=== PATIENT | female | born 1940 | race Caucasian/White ===

== ENCOUNTER 2017-04-10 11:39 | Day surgery (SDC) | payer OTHER ==
[~2017-04-10 11:39] MED LIST: Buffered Lidocaine 0.9% SYRIN* 5 ML/SYR SYRINGE INTRADERM ONE
[2017-04-10] MEDS ORDERED: Clindamycin 900 MG IVPREMIX(* 900 MG/50 ML SDV IV ONE (12:27)
[2017-04-10] MEDS ORDERED: Lidocaine 1% MPF wEPI 200,000* 30 ML SDV ONE (12:40)
[2017-04-10] MEDS ORDERED: Mineral Oil Sterile, TOPICAL* 25 ML BTL ONE (12:41)
[2017-04-10] MEDS ORDERED: Methylene Blue 0.5 %* 50 MG/10 ML AMP IV ONE (12:41)
[2017-04-10] MEDS ORDERED: Midazolam* 1 MG/ML 2 ML VIAL (2 MG) ONE (12:55)
[2017-04-10] MEDS ORDERED: fentaNYL* 50 MCG/ML 2 ML VIAL (100 MCG VIAL) ONE (12:55)
[2017-04-10] MEDS ORDERED: Lidocaine 2% PF * 5 ML VIAL ONE (13:09)
[2017-04-10] MEDS ORDERED: Propofol* 10 MG/ML 20 ML BTL IV PUSH ONE (13:09)
[2017-04-10 14:48] VITALS: BP 128/63
[2017-04-10] MEDS ORDERED: Acetaminophen TAB* 325 MG ONE (15:03)
== END 2017-04-10 15:20 | disposition home or self-care (01) ==
LOC: OREAST 11:39
PROVIDERS: ATTEND Plastic Surgery
DX: C44.311 Basal cell carcinoma of skin of nose (principal)
CPT/HCPCS: A9270-GY; J2001; J2250; J2704; J3010

== ENCOUNTER 2019-03-20 18:52 | Emergency (ER) | payer OTHER ==
--- OUTSIDE RECORDS SUMMARY | 2019-03-20 18:58 | XMS REPORT | Summary of Care ---
:1940 Author Organization [facility] Address [address] [facility] [place] [address] Care Team Providers Name Role Phone Kusum Castorena MD Primary Care Provider Reason for Visit Reason Comments Physical Encounter Details Date Type Department Care Team Description 03/19/2019 Office Visit [facility] [place], Mixed hyperlipidemia ( Primary Dx); Practice Kusum Robertson MD Osteoarthritis of knee, unspecified laterality, unspecified osteoarthritis type; [address] Well adult exam; [place] [address] [place] [address] Elevated triglycerides with high cholesterol; [phone] Elevated glucose Allergies Active Allergy Reactions Severity Noted Date Comments Amoxicillin Unknown Reaction 08/06/2018 Niacin PHONOGRAPH NEEDLE TIP MAKER Reaction 08/06/2018 Head feels prickly and stings documented as of this encounter (statuses as of 03/19/2019) Medications Medication Sig Dispensed Refills Start End Date Status Date Ergocalciferol Take by mouth. 0 Active (VITAMIN D2) 400 units Oral Tab Calcium 500-125 Take by mouth. 0 Active MG-UNIT Oral Tab Ford-3 1000 MG Take by mouth. 0 Active Oral Cap Nutritional Take by mouth. 0 Active Supplements (GRAPESEED EXTRACT) 500-50 MG Oral Cap Misc Natural Take by mouth 0 Active Products TWICE DAILY. (XUBXBU-XJUQMWJXK-Q SM COMPLEX PO) Zinc 40 MG Oral Tab Take by mouth. 0 Active Multiple Take by mouth. 0 Active Vitamins-Minerals (HAIR SKIN AND NAILS FORMULA PO) albuterol HFA Take 2 Puffs by 0 Active (VENTOLIN HFA) 108 inhalation. (90 Base) MCG/ACT Inhalation Aero Soln Cyanocobalamin Take by mouth 0 Active (VITAMIN B-12) 1000 DAILY. MCG Oral Tab loratadine Take 10 mg by 0 Active (CLARITIN,ALAVERT) mouth DAILY. 10 MG Oral Tab acetaminophen Take 1 Tab by 60 Tab 0 Active (TYLENOL) 500 MG mouth EVERY 9 Oral Tab FOUR HOURS. nabumetone Take 750 mg by 180 Tab 1 Active (RELAFEN) 750 MG mouth TWICE 9 Oral DAILY. TabIndications: Osteoarthritis of knee, unspecified laterality, unspecified osteoarthritis type Rosuvastatin Take 1 Tab by 90 Tab 1 Active Calcium (CRESTOR) mouth DAILY. 9 20 MG Oral Discontinue TabIndications: lovastatin Mixed hyperlipidemia Lovastatin 20 MG Take 20 mg by 0 03/19/20 Discontinued Oral Tab mouth DAILY. 19 nabumetone Take 750 mg by 0 03/19/20 Discontinued (RELAFEN) 750 MG mouth TWICE 19 (Reorder) Oral Tab DAILY. 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 03/18/2019 Overview: right thigh documented as of this encounter (statuses as of 03/19/2019) Immunizations Name Administration Dates Next Due Influenza Vaccine High Dose 04/05/2018 PNEUMOCOCCAL POLYSACCHARIDE VACCINE 07/29/2007 Pneumococcal Conjugate Vaccine 03/01/2015 TDAP Vaccine 05/26/2006 TETANUS & DIPHTHERIA TOXOID (OVER 7 YRS) 04/28/2017 ZOSTER (ZOSTAVAX) VACCINE 01/08/2007 documented as of this encounter Social History Tobacco Use Types Packs/Day Years Used Date Never Smoker Smokeless Tobacco: Never Used Alcohol Use Drinks/Week oz/Week Comments Yes 1 Glasses of wine 1.0 4/month Alcohol Habits Answer Date Recorded How often do you have a drink containing alcohol? Monthly or less 08/06/2018 How many drinks containing alcohol do you have on a Not asked typical day when you are drinking? How often do you have six or more drinks on one Not asked occasion? Sex Assigned at Date Recorded Not on file Job Start Date Occupation Industry Not on file Not on file Not on file Travel History Travel Start Travel End No recent travel history available. documented as of this encounter Last Filed Vital Signs Vital Sign Reading Time Taken Comments Blood Pressure 120/80 03/19/2019 1:35 PM EDT Pulse 78 03/19/2019 1:35 PM EDT Temperature 37.4 03/19/2019 1:35 PM EDT C (99.3 F) Respiratory Rate - - Oxygen Saturation 99% 03/19/2019 1:35 PM EDT Inhaled Oxygen Concentration - - Weight 76.7 kg (169 lb) 03/19/2019 1:35 PM EDT Height 161.3 cm (5' 3.5") 03/19/2019 1:35 PM EDT Body Mass Index 29.47 03/19/2019 1:35 PM EDT documented in this encounter Patient Instructions Patient InstructionsKusum Castorena MD - 03/19/2019 1:20 PM EDTYou have had problems swallowing. Do your exercises as you learned in speech therapy a few years ago. Keep food moist, eat slowly. I otherwise recommend a swallowing study at [facility] to help determine where the problem is, vs gastroenterology consultation for upper endoscopy. Be very careful to avoid choking. Work on diet and exercise and recheck fasting laboratory tests in June. 2: 10 PM EDT documented in this encounter Progress Notes uKsum Castorena MD - 03/19/2019 1:20 PM EDT Nursing Notes: Annamaria Clancy LPN 03/19/2019 1:42 PM Signed Chief Complaint Patient presents with Physical Shift Boss: Dr Toledo Subjective: Ellie Guzmán is a 79-y.o. year old female who presents for annual female exam. Exercise has been off for 3 months, cleared by surgeon to resume. Last pap smear 01/2018 Mammogram up to date 01/2018 cmc She has had her left thigh lesion removed since last visit: myxoid spindle cell neoplasm, right lateral thigh/vastuslateralis, mass plus margins 8 cm x [address] Mireles on 03/04/19. She says she stayed in the hospital two days since she lives alone. She says the care was fantastic. Patient Active Problem List Diagnosis Myxoma of thigh, right Osteoarthritis of knee Left shoulder pain Other problems include: Has dysphagia in upper esophagus/throat level. Will choke,romano. Has had this for years. Has had to vomit 3 times in the last year to clear it. Drinking fluids helps a bit. Has hx gerd 9 yr ago and known hiatal hernia Current symptoms feel different When she eats it feels like her throat closes off at epiglottis level. Treatment tried: chiropractor--mild short term help Saw ENT a few years: Negative for blockage/mass so Physical/Speech Therapy was recommended. She did it for 3 months and it helped a bit. Health maintainance concerns include Physical exam, influenza vaccine. Health Maintenance Topic Date Due ZOSTER IMMUNIZATION SERIES (2 of 3) 03/05/2007 INFLUENZA VACCINE (1) 02/21/2019 DEPRESSION SCREENING 08/06/2019 FALL RISK ASSESSMENT 08/06/2019 LIPID DISORDER SCREENING 03/19/2024 OSTEOPOROSIS SCREENING 06/02/2028 PNEUMOCOCCAL 65+YRS Completed HPV IMMUNIZATION SERIES Aged Out MENINGOCOCCAL VACCINE IMM Aged Out Immunization History Administered Date(s) Administered Influenza Vaccine High Dose 04/05/2018 PNEUMOCOCCAL POLYSACCHARIDE VACCINE 07/29/2007 Pneumococcal Conjugate Vaccine 03/01/2015 TDAP Vaccine 05/26/2006 TETANUS & DIPHTHERIA TOXOID (OVER 7 YRS) 04/28/2017 ZOSTER (ZOSTAVAX) VACCINE 01/08/2007 Pended Date(s) Pended Influenza Vaccine 65 Yrs + 03/18/2019 Influenza Vaccine High Dose 02/24/2019 Lab Results Component Value Date CHOL 210 (H) 12/02/2018 TRIG 312 (H) 12/02/2018 HDL 48 (L) 12/02/2018 LDL 100 (H) 12/02/2018 LDLHDLRATIO 2.1 12/02/2018 CHOLHDLRATIO 4.4 12/02/2018 Lab Results Component Value Date NA 138 03/05/2019 K 3.8 03/05/2019 CL 109 (H) 03/05/2019 CO2 22 03/05/2019 GLUCOSE 118 (H) 03/05/2019 BUN 14 03/05/2019 CREATININE 0.7 03/05/2019 CALCIUM 8.6 03/05/2019 TP 8.2 02/23/2019 ALBUMIN 4.5 02/23/2019 AST 28 02/23/2019 ALT 21 02/23/2019 ALK 93 02/23/2019 TBILI 0.5 02/23/2019 EGFR >60 03/05/2019 Admission on 03/04/2019, Discharged on 03/06/2019 Component Date Value Ref Range Status Case Report 03/04/2019 Final Value:Surgical Pathology Case: [id number] Authorizing Provider: Pardeep Mireles MD Collected: 2018 09:37 AM Ordering Location: [facility] Preprocedure Received: 2018 11:32 AM Pathologist: Darren Villar MD Specimen: RIGHT thigh mass, suture at 12 o'clock superior Pre-Op Diagnosis 03/04/2019 Final Value: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 Microscopic Description 03/04/2019 Final Value:This result contains rich text formatting which cannot be displayed here. Gross Description 03/04/2019 Final Value:This result contains rich text formatting which cannot be displayed here. Glucose 03/05/2019 118* 70 - 99 mg/dl Final BUN 03/05/2019 14 7 - 17 mg/dl Final Creatinine 03/05/2019 0.7 0.7 - 1.2 mg/dl Final Sodium 03/05/2019 138 134 - 145 mmol/L Final Potassium 03/05/2019 3.8 3.5 - 5.1 mmol/L Final Chloride 03/05/2019 109* 98 - 107 mmol/L Final CO2 03/05/2019 22 22 - 30 mmol/L Final Calcium 03/05/2019 8.6 8.3 - 10.1 mg/dl Final eGFR 03/05/2019 >60 See Interpretation Below ml/min/1.73ml Sq Final Estimated GFR Interpretation: Above 60ml/min/1.73m2 = Normal Renal Function 30-59 ml/min/1.73m2 = Stage 3 Chronic Kidney Disease 15-29 ml/min/1.73m2 = Stage 4 Chronic Kidney Disease Less than 15 ml/min/1.73m2 = Stage 5 Chronic Kidney Disease The GFR value is calculated using the Modification of Diet in Renal Disease ( MDRD) Study Equation which can be found at: https://www.kidney.org/content/ncgn-sxwgo-ivqhnnjq BUN/Creatinine Ratio 03/05/2019 20 6 - 22 RATIO Final Anion Gap 03/05/2019 7 3 - 11 mmol/L Final WBC Count 03/05/2019 10.96* 3.98 - 10.04 K/uL Final Methodology was changed 06/25/2018. Please note updated reference range and units. RBC Count 03/05/2019 3.64* 3.93 - 5.22 M/UL Final Hemoglobin 03/05/2019 11.7 11.2 - 15.7 g/dL Final Hematocrit 03/05/2019 34.2 34.1 - 44.9 % Final MCV 03/05/2019 94.0 79.4 - 94.8 FL Final MCH 03/05/2019 32.1 25.6 - 32.2 PG Final MCHC 03/05/2019 34.2 32.2 - 35.5 g/dL Final Platelet Count 03/05/2019 258 182 - 369 K/uL Final MPV 03/05/2019 8.6* 9.4 - 12.3 FL Final RDW 03/05/2019 12.3 11.7 - 14.4 % Final Magnesium 03/05/2019 2.1 1.6 - 2.3 MG/DL Final Past Medical History: Diagnosis Date Arthritis hands, knees, ankles Asthma 2018 dx on PFT,normal FVC Basal cell carcinoma, face High cholesterol high triglyerides, started a wellness program. 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 albuterol HFA (VENTOLIN HFA) 108 (90 Base) MCG/ACT Inhalation Aero Soln Take 2 Puffs by inhalation. Calcium 500-125 MG-UNIT Oral Tab Take by mouth. Cyanocobalamin (VITAMIN B-12) 1000 MCG Oral Tab Take by mouth DAILY. Ergocalciferol (VITAMIN D2) 400 units Oral Tab Take by mouth. loratadine (CLARITIN,ALAVERT) 10 MG Oral Tab Take 10 mg by mouth DAILY. Misc Natural Products (MOLNNS-APUSSQCRK-UPC COMPLEX PO) Take by mouth TWICE DAILY. Multiple Vitamins-Minerals (HAIR SKIN AND NAILS FORMULA PO) Take by mouth. nabumetone (RELAFEN) 750 MG Oral Tab Take 750 mg by mouth TWICE DAILY. Nutritional Supplements (GRAPESEED EXTRACT) 500-50 MG Oral Cap Take by mouth. Ford-3 1000 MG Oral Cap Take by mouth. Rosuvastatin Calcium (CRESTOR) 20 MG Oral Tab Take 1 Tab by mouth DAILY. Discontinue lovastatin Zinc 40 MG Oral Tab Take by mouth. No current facility-administered medications for this visit. Amoxicillin and Niacin Social History Tobacco Use Smoking status: Never Smoker Smokeless tobacco: Never Used Substance Use Topics Alcohol use: Yes Alcohol/week: 1.0 standard drinks Types: 1 Glasses of wine per week Frequency: Monthly or less Comment: 4/month Drug use: Not Currently Family History Problem Relation Age of Onset Cancer Mother skin Emphysema Mother at 81 from COPD Diabetes Father Cancer Father colon COPD Father from surgery COPD Brother Review of Systems - General ROS: negative for - chills or fever, unexpected weight changes ENT ROS: negative for - headaches, nasal congestion, nasal discharge, sinus pain , sore throat or visual changes Respiratory ROS: negative for - cough, hemoptysis or shortness of breath Cardiovascular ROS: negative for - chest pain, dyspnea on exertion, edema or palpitations Gastrointestinal ROS: no abdominal pain, change in bowel habits, or black or bloody stools; she has intermittent dysphagia/swallowing difficulty as noted above. Genito-Urinary ROS: no dysuria, trouble voiding, or hematuria Neuro: denies headache, focal weakness, numbness Psych: Denies depression Objective: BP 120/80 (BP Location: Right arm, Patient Position: Sitting) Pulse 78 Temp 99.3 F (37.4 C) (Tympanic) Ht 5' 3.5" (1.613 m) Wt 169 lb (76.7 kg) SpO2 99% ? No BMI 29.47 kg/m2 Physical Examination: General appearance - alert, well appearing, and in no distress Mental status - alert, oriented to person, place, and time, normal mood, behavior, speech, dress, motor activity, and thought processes Eyes - pupils equal and reactive, extraocular eye movements intact, sclera anicteric Ears - bilateral TM's and external ear canals normal Neck - supple, no significant adenopathy, carotids upstroke normal bilaterally, no bruits, thyroid exam: thyroid is normal in size without nodules or tenderness , no neck masses palpated. Chest/Lungs - clear to auscultation, no wheezes, rales or rhonchi, symmetric air entry, good aeration Heart - normal rate, regular rhythm, normal S1, S2, no murmurs, rubs, clicks or gallops Abdomen - soft, nontender, nondistended, no masses or organomegaly, bowel sounds normal Neurological - alert, oriented, normal speech, no gross focal findings or movement disorder noted Extremities - peripheral pulses normal, no pedal edema, no clubbing or cyanosis Breasts are symmetric. No dominant, discrete, fixed or suspicious masses are noted. No skin or nipple changes or axillary nodes. Skin: No worrisome lesions seen Assessment/Plan: Healthy female ICD-9-CM ICD-10-CM 1. Mixed hyperlipidemia 272.2 E78.2 Rosuvastatin Calcium (CRESTOR) 20 MG Oral Tab 2. Osteoarthritis of knee, unspecified laterality, unspecified osteoarthritis type 715.36 M17.10 nabumetone (RELAFEN) 750 MG Oral Tab 3. Well adult exam V70.0 Z00.00 4. Elevated triglycerides with high cholesterol 272.2 E78.2 LIPID PROFILE 5. Elevated glucose 790.29 R73.09 COMPREHENSIVE METABOLIC PANEL GLYCOHEMOGLOBIN A1C 1. Routine Screening: Screening for osteoporosis? 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 She will check on her insurance coverage and resume the exercises she learned in speech therapy a few years ago. She will call when ready for the next step. Choking precautions discussed. 2. Immunizations today: None, she plans her flu shot at work 3. Preventative Counseling: importance of regular dental care, healthy dietary guidelines, proper exercise, fall prevention DIET AND EXERCISE: Exercise is recommended 150 minutes weekly: 30 minutes five days a week of moderate exercise such as walking. In addition is it recommended you have two days weekly of working all your major muscle groups (arms, legs) such as with weight lifting or other exercise. Author: Kusum Castorena MD 03/19/2019 15:32 documented in this encounter Plan of Treatment Date Type Specialty Care Team Description 04/20/2019 Office Visit General Surgery Pardeep Mireles MD [address] [place] [place] [address] [phone] Name Type Priority Associated Diagnoses Order Schedule LIPID PROFILE Lab Routine Elevated triglycerides Expected: with high cholesterol 07/19/2019 (Approximate), Expires: 02/17/2020 COMPREHENSIVE METABOLIC Lab Routine Elevated glucose Expected: PANEL 07/19/2019 (Approximate), Expires: 02/17/2020 GLYCOHEMOGLOBIN A1C Lab Routine Elevated glucose Expected: 07/19/2019 (Approximate), Expires: 02/17/2020 Health Maintenance Due Date Last Done Comments ZOSTER IMMUNIZATION SERIES 03/05/2007 01/08/2007 (2 of 3) INFLUENZA VACCINE (#1) 2019 04/05/2018 DEPRESSION SCREENING 08/06/2019 08/06/2018 FALL RISK ASSESSMENT 08/06/2019 08/06/2018, 08/06/2018 LIPID DISORDER SCREENING 03/19/2024 03/19/2019, 12/02/2018, 10/26/2018, Additional history exists OSTEOPOROSIS SCREENING 06/02/2028 06/02/2018, 06/02/2018 PNEUMOCOCCAL 65+YRS Completed 03/01/2015, 07/29/2007 HPV IMMUNIZATION SERIES Aged Out No longer eligible based on patient's age to complete this topic MENINGOCOCCAL VACCINE IMM Aged Out No longer eligible based on patient's age to complete this topic documented as of this encounter Results Not on filedocumented in this encounter Visit Diagnoses Diagnosis Mixed hyperlipidemia - Primary Osteoarthritis of knee, unspecified laterality, unspecified osteoarthritis type Well adult exam Routine general medical examination at a health care facility Elevated triglycerides with high cholesterol Mixed hyperlipidemia Elevated glucose Other abnormal glucose documented in this encounter Insurance Payer Benefit Plan / Subscriber ID Effective Dates Phone Address Type Group [employer] COMMERCIAL AETNA xxxxxxxxxx 2006-Present [employer] documented as of this encounter
--- OUTSIDE RECORDS SUMMARY | 2019-03-20 18:58 | XMS REPORT | Summary of Care ---
:1940 Author Organization [facility] Address [address] [place] [address] Care Team Providers Name Role Phone Kusum Castorena MD Primary Care Provider Reason for Visit Reason Comments Follow-up s/p 03/04/19 OPERATION: Resection myxoid spindle cell neoplasm, right lateral thigh/vastus Encounter Details Date Type Department Care Team Description 03/18/2019 Office Visit Aj General Surgery Colleen, Myxoma (Primary Dx); [address] PA-C Spindle cell type atypical fibroxanthoma [place] [address] [address] [phone] [place] [address] Allergies Active Allergy Reactions Severity Noted Date Comments Amoxicillin Unknown Reaction 08/06/2018 Niacin ELECTRIC HOIST OPERATOR Reaction 08/06/2018 Head feels prickly and stings documented as of this encounter (statuses as of 03/19/2019) Medications Medication Sig Dispensed Refills Start Date End Date Status Ergocalciferol Take by 0 Active (VITAMIN D2) 400 mouth. units Oral Tab Calcium 500-125 Take by 0 Active MG-UNIT Oral Tab mouth. [place]-3 1000 MG Oral Take by 0 Active Cap mouth. Nutritional Take by 0 Active Supplements mouth. (GRAPESEED EXTRACT) 500-50 MG Oral Cap Misc Natural Take by 0 Active Products mouth TWICE (WSTJLI-DMBIWHVIR-ED DAILY. M COMPLEX PO) Zinc 40 MG Oral Tab Take by 0 Active mouth. Multiple Take by 0 Active Vitamins-Minerals mouth. (HAIR SKIN AND NAILS FORMULA PO) albuterol HFA Take 2 0 Active (VENTOLIN HFA) 108 Puffs by (90 Base) MCG/ACT inhalation. Inhalation Aero Soln Cyanocobalamin Take by 0 Active (VITAMIN B-12) 1000 mouth MCG Oral Tab DAILY. loratadine Take 10 mg 0 Active (CLARITIN,ALAVERT) by mouth 10 MG Oral Tab DAILY. acetaminophen Take 1 Tab 60 Tab 0 03/06/2019 Active (TYLENOL) 500 MG by mouth Oral Tab EVERY FOUR HOURS. Lovastatin 20 MG Take 20 mg 0 Discontinued Oral Tab by mouth 9 DAILY. nabumetone (RELAFEN) Take 750 mg 0 Discontinued 750 MG Oral Tab by mouth 9 (Reorder) TWICE DAILY. OXYcodone Take 1 Tab 16 Tab 0 03/05/2019 Discontinued (OXY-IR,OXY-FAST) 5 by mouth 9 (Error) MG Oral Tab EVERY FOUR HOURS NEEDED (pain). Max Daily Amount: 30 mg. 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 female who presents 2 weeks following Resection myxoid spindle cell neoplasm, right lateral thigh/vastus lateralis, mass plus margins 8 cm x [address] Mireles on 03/04/19. Patient states they are doing well over all. Patient has been keeping the incision clean and dry, washing over with soap and water without complications. Denies fever, chills, constitutional symptoms, redness, or increased pain at procedure sites. She is working with [facility] [email or web address] [facility] for exercise activities. She wishes to return to swimming int he near future. Exam: Ellie Guzmán is a 79-y.o. female oriented to person, place, and time. Incision: well healing, without complications, there is no erythema, bleeding or drainage at incision site. Pathology: Intramuscular Myxoma ASSESSMENT: ICD-9-CM ICD-10-CM 1. Myxoma 215.9 D21.9 2. 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 Follow up with Surgical Oncology in 4 - 6 weeks. She will review with Dr. Mireles the pathology at her request, and discuss any imaging follow up recommended. All questions andconcerns were addressed during today's visit. Patient may follow up sooner if problems or concerns arise. Author: Bianka Macias PA-C 03/18/2019 15:12 documented in this encounter Plan of Treatment Date Type Specialty Care Team Description 04/20/2019 Office Visit General Surgery Pardeep Mireles MD [address] [address] Health Maintenance Due Date Last Done Comments [...] filedocumented in this encounter Visit Diagnoses Diagnosis Myxoma - Primary Other benign neoplasm of connective and other soft tissue of unspecified site Spindle cell type atypical fibroxanthoma Other benign neoplasm of connective and other soft tissue of unspecified site documented in this encounter Insurance Payer Benefit Plan / Subscriber ID Effective Dates Phone Address Type Group [employer]CIAL AETNA xxxxxxxxxx 2006-Present [employer] documented as of this encounter
--- OUTSIDE RECORDS SUMMARY | 2019-03-20 18:58 | XMS REPORT | Summary of Care ---
:1940 Author Organization [facility] Address [address] [address] Care Team Providers Name Role Phone Kusum Castorena MD Primary Care Provider Reason for Referral Refer to Department Only (Routine) Status Reason Specialty Diagnoses / Referred By Referred To Contact Procedures Contact Authorized Physical Therapy Diagnoses Sarcoma (HCC) Nelsy Malik MD Orthopaedics - 1 [facility] [address] [place] [address] Phone: [address] [phone] [place], [place] Fax: [phone] Refer to Department Only (Routine) Status Reason Specialty Diagnoses / Referred By Referred To Procedures Contact Contact Authorized Physical Therapy Diagnoses Sarcoma (HCC) Nelsy Malik [facility] Wendy Domingo MD Therapy [address] [place] [address] [address] Phone: [phone] Phone: Reason for Visit Auth/Cert Status Reason Specialty Diagnoses / Procedures Referred By Contact Referred To Contact Diagnoses Malignant neoplasm of connective and soft tissue, unspecified Encounter Details Date Type Department Care Team Description 03/04/2019 - Hospital Encounter [facility] 7 Angela Mireles, Short Procedure 03/06/2019 [place] [address] [place] [address] [address] [address] [phone] Allergies Active Allergy Reactions Severity Noted Date Comments Amoxicillin Unknown Reaction 08/06/2018 Niacin CASKET COVERER Reaction 08/06/2018 Head feels prickly and stings documented as of this encounter (statuses as of 03/07/2019) Medications Medication Sig Dispensed Refills Start Date End Date Status Lovastatin 20 MG Take 20 mg 0 Active Oral Tab by mouth DAILY. nabumetone (RELAFEN) Take 750 mg 0 Active 750 MG Oral Tab by mouth TWICE DAILY. Ergocalciferol Take by 0 Active (VITAMIN D2) 400 mouth. units Oral Tab Calcium 500-125 Take by 0 Active MG-UNIT Oral Tab mouth. Chamberlain-3 1000 MG Oral Take by 0 Active Cap mouth. Nutritional Take by 0 Active Supplements mouth. (GRAPESEED EXTRACT) 500-50 MG Oral Cap Misc Natural Take by 0 Active Products mouth TWICE (BFIFAF-COQEKRVCQ-IS DAILY. M COMPLEX PO) Zinc 40 MG [...] by mouth 10 MG Oral Tab DAILY. methocarbamol Take 0.5 240 Tab 0 03/05/2019 Active (ROBAXIN) 500 MG Tabs by 9 Oral Tab mouth FOUR TIMES DAILY for 7 days. OXYcodone Take 1 Tab 16 Tab 0 03/05/2019 Active (OXY-IR,OXY-FAST) 5 by mouth MG Oral Tab EVERY FOUR HOURS NEEDED (pain). Max Daily Amount: 30 mg. acetaminophen Take 1 Tab 60 Tab 0 03/06/2019 Active (TYLENOL) 500 MG by mouth Oral Tab EVERY FOUR HOURS. acetaminophen Take 1 Tab 60 Tab 0 03/06/2019 Discontinued (TYLENOL) 500 MG by mouth 9 (Reorder) Oral Tab EVERY FOUR HOURS. documented as of this encounter (statuses as of 03/07/2019) Active Problems No known active problemsdocumented as of this encounter (statuses as of 2018) Resolved Problems Problem Noted Date Resolved Date Myxoma of thigh, right 02/09/2019 03/06/2019 Overview: Added automatically from request for surgery [id number] documented as of this encounter (statuses as of 03/07/2019) Immunizations Name Administration Dates Next Due Influenza [...] Sign Reading Time Taken Comments Blood Pressure 139/75 03/06/2019 9:15 AM EDT Pulse 76 03/06/2019 9:15 AM EDT Temperature 36.4 03/06/2019 9:15 AM C (97.6 EDT F) Respiratory Rate 18 03/06/2019 9:15 AM EDT Oxygen Saturation 97% 03/06/2019 9:15 AM EDT Inhaled Oxygen Concentration - - Weight 77.4 kg (170 lb 11.2 oz) 03/04/2019 8:03 AM EDT Height 161.3 cm (5' 3.5") 03/04/2019 8:03 AM EDT Body Mass Index 29.76 03/04/2019 8:03 AM EDT documented in this encounter Discharge Summaries Orlando Mercado MD - 03/05/2019 5:20 PM EDT [facility] [address] [address] [id number] Discharge Summary Patient ID: Ellie Guzmán [id number] 79-y.o. 1940 Admission date: 03/04/2019 Discharge date: 03/06/2019 Admitting Physician: Angela Mireles MD Indication for Admission: Right Lateral Thigh Mass Principal Diagnosis: Right Lateral Thigh Myxoma Other medical problems managed in the hospital: Patient Active Problem List Diagnosis Sarcoma (HCC) Discharged Condition: stable Hospital Course: Ellie Guzmán is a 79-y.o. female admitted on 03/04/19 with right thigh mass. She was taken to the OR on 03/04/2019 and underwent resection Right Thigh MasS ( Right )which she tolerated well. Postoperatively, she was transferred from PACU to floor in stable condition. she remained afebrile and hemodynamically stable with no acute events throughout the majority of thepostoperative recovery. Surgical drain was removed on POD1. PT/OT was consulted and recommended short term rehab. Patient refused rehab understanding that this is associated with risk of delayed recovery/ injuries, and accepted outpatient physical therapy. Referrals was sent for [facility] for rehab. Upon discharge Ellie Guzmán is tolerating a regular diet without nausea/emesis , pain is controlled on oral medications, and she is voiding spontaneously. BP 119/65 Pulse 71 Temp 96.9 F (36.1 C) (Temporal) Resp 16 Ht 5' 3.5 " (1.613 m) Wt 170 lb 11.2 oz (77.4 kg) SpO2 96% BMI 29.76 kg/m2 General: alert, no distress, oriented times 3 Lungs: unlabored breathing on RA Heart: regular rate and rhythm Ext: warm, well perfused. incisions c/d/i, no induration/ drainage/ erythema She was discharged home on POD2. Ellie Guzmán will follow up with Bianka Macias in 10-14 days from surgery for post operative appointment. Consults: CONSULT TO GENERATOR OPERATOR/CASE MANAGEMENT Treatments: analgesia antibiotics DVT Prophylaxis IV hydration wound care Procedures: pathology: Specimen from surgery on 03/04/2019 FINAL DIAGNOSIS 1. Soft tissue, right thigh, excision: Intramuscular myxoma, completely removed. Microscopic Description Sections show a well-demarcated myxoid neoplasm with abundant myxoid matrix containing small myofibroblastic cells. No cytologic atypia is identified. Blood vessels are inconspicuous. Gross Description 1. The specimen is received fresh labeled, with the patient's name, BRANDON, and RIGHT thigh mass, suture at 12 o'clock superior. It consists of an oriented ( suture at 12:00)) soft tissue fragment that measures 6.5 cm from 12:00 proximal superior to 6:00 distal inferior, 4.5 cm from 3:00 medial to 9:00 lateral, excessive depth of 3.5 cm. The specimen is inked as follows: Superior = blue; medial = red; inferior = green; lateral = orange; anterior = yellow; posterior = black. The specimen is serially sectioned progressing from superior to inferior to reveal a pink-reddy and well-circumscribed fleshy lesion measuring approximately 5.5 x 3.6 x 2.6 cm that is located 0.21cm from the nearest lateral marginand approximately 0.2 cm from the anterior margin. Structural Steel Engineer sections are submitted as follows: 1A = superior margin, en face 1B-1C = sections of the lesion with the nearest lateral and anterior margins 1D = sections showing the lateral anterior medial and posterior margins 1E-1G = random sections of the lesion 1H = inferior margin, en face. MN Gross description is reviewed before signout by Darren Villar MD Ct Chest Without Iv Contrast Result Date: 02/26/2019 Procedure(s): CT CHEST WITHOUT IV CONTRAST Date of service: 02/23/2019 2:04 PM Provided clinical information: 78 years, Female, "sarcoma staging" Procedure and materials: Standard protocol. Contrast: None. Comparison studies: None. Observations: Axillary regions and chest wall are unremarkable. Thoracic inlet is normal. Mediastinum and hilar regions are unremarkable to the extent examined without contrast. Small hiatal hernia is noted. Esophagus is otherwise normal. No pleural or pericardial effusion. Lung parenchyma is normal. Specifically no nodules identified. Airways are normal. Visualized upperabdomen is unremarkable. Bones are normal No evidence of metastatic disease or other active process in the chest. Signed by Brendan Drake MD on 02/26/2019 12:46 PM Recent Labs 03/05/19 0658 WBC 10.96* HGB 11.7 HCT 34.2 PLAT 258 Recent Labs 03/05/19 0658 NA 138 K 3.8 CL 109* CO2 22 GLUCOSE 118* BUN 14 CREATININE 0.7 CALCIUM 8.6 EGFR >60 Magnesium Date Value Ref Range Status 03/05/2019 2.1 1.6 - 2.3 MG/DL Final No results found for: INR Operations: 03/04/2019 Resection myxoid spindle cell neoplasm, right lateral thigh/vastus lateralis, mass plus margins 8 cm x 11 cm resection. Complications: None Medications: Current Discharge Medication List START taking these medications acetaminophen 500 MG Tabs Commonly known as: TYLENOL Dose: 500 mg Quantity: 60 Tab Refills: 0 Take 1 Tab by mouth EVERY FOUR HOURS. methocarbamol 500 MG Tabs Commonly known as: ROBAXIN Dose: 250 mg Quantity: 240 Tab Refills: 0 Take 0.5 Tabs by mouth FOUR TIMES DAILY for 7 days. OXYcodone 5 MG Tabs Commonly known as: OXY-IR,OXY-FAST Dose: 5 mg Quantity: 16 Tab Refills: 0 Take 1 Tab by mouth EVERY FOUR HOURS NEEDED (pain). Max Daily Amount: 30 mg. CONTINUE these medications which have NOT CHANGED Calcium 500-125 MG-UNIT Tabs Refills: 0 Take by mouth. [id number] COMPLEX PO Refills: 0 Take by mouth TWICE DAILY. Grapeseed Extract 500-50 MG Caps Refills: 0 Take by mouth. HAIR SKIN AND NAILS FORMULA PO Refills: 0 Take by mouth. loratadine 10 MG Tabs Commonly known as: CLARITIN,ALAVERT Dose: 10 mg Refills: 0 Take 10 mg by mouth DAILY. Lovastatin 20 MG Tabs Dose: 20 mg Refills: 0 Take 20 mg by mouth DAILY. nabumetone 750 MG Tabs Commonly known as: RELAFEN Dose: 750 mg Refills: 0 Take 750 mg by mouth TWICE DAILY. Chamberlain-3 1000 MG Caps Refills: 0 Take by mouth. VENTOLIN HFA 108 (90 Base) MCG/ACT Aers Generic drug: albuterol HFA Dose: 2 Puff Refills: 0 Take 2 Puffs by inhalation. Vitamin B-12 1000 MCG Tabs Refills: 0 Take by mouth DAILY. Vitamin D2 400 units Tabs Refills: 0 Take by mouth. Zinc 40 MG Tabs Refills: 0 Take by mouth. Where to Get Your Medications These medications were sent to [facility] [place] [facility] [address] [address] methocarbamol 500 MG Tabs OXYcodone 5 MG Tabs These medications were sent to [id number] - [place], [place] - [address], [facility] [id number] acetaminophen 500 MG Tabs Oxygen or Positive Pressure Devices: none Provider's Instructions Reason for Admission or Diagnosis: myxoma of right thigh Activity/Restrictions: Activity as tolerated, but no heavy lifting > 10 lbs (nothing heavier than a gallon of milk) or strenuous exercise for 4 weeks or until cleared by a physician at your post-operative appointment. Nodriving while on narcotic pain medications. You can drive the week after next week if you are off narcotics and you feel up to it. Exercise and walk daily. Take tylenol as needed for pain (do not exceed 4000 mg acetaminophen in total per day). Take oxycodone 1-2 tablet every 4-6 hours as needed for severe pain. Skin/Wound Care: Keep incision clean and dry. Observe for redness, swelling, or drainage. It is okay to begin taking normal showers starting the day after discharge; let soap and water rinse over wounds and dry carefully. No scrubbing at the wounds. No soaking baths or swimming for 2 weeksafter discharge. Use ice packs and heat packs as needed for additional pain relief. Sutures are absorbable and do not need to be removed. Discharge Diet: Normal diet that you were on prior to hospitalization. Please take stool softener while you are on narcotic pain medication since it can cause constipation. Special Instructions: Follow up with Bianka Macias in [facility] in 10-14 days for post op visit. Please call clinic on Friday to schedule for the appointment. Please start outpatient physical therapy early next week. Please start taking oxycodone as needed for pain. Take tylenol over the counter as needed for pain (do not exceed 4000 mg acetaminophen in total per day ). Please monitor for any fevers> 100.5; redness, swelling or drainage from the wounds; inability to tolerate fluids by mouth and call clinic immediately if these symptoms occur. Please call the clinic if you have any questions or concerns before your appointment. Discharge Provider: Isha Jessica MD Attending: Angela Mireles MD Time: 16:35 Orders Placed This Encounter Procedures REFER TO PHYSICAL THERAPY / REHAB Reason for referral / functional deficit: Impaired Gait , Impaired Range of Motion and Impaired Strength Indicated Amount of Service: Patient would benefit from skilled physical therapy service to include: Gait Training, Therapeutic Procedures/Exercise, Patient/Family Training/Education Ellie Guzmán is a 79-y.o. female for Evaluation and Treatment Standing Status: Standing Number of Occurrences: 99 Standing Expiration Date: 03/05/2020 Referral Priority: Routine Referral Type: Refer to Department Only Requested Specialty: Physical Therapy Number of Visits Requested: 99 REFER TO PHYSICAL THERAPY / REHAB Reason for referral / functional deficit: Impaired Gait , Impaired Range of Motion and Impaired Strength Indicated Amount of Service: Patient would benefit from skilled physical therapy service to include: Gait Training, Therapeutic Procedures/Exercise, Patient/Family Training/Education Ellie Guzmán is a 79-y.o. female for Evaluation and Treatment Standing Status: Standing Number of Occurrences: 99 Standing Expiration Date: 03/05/2020 Referral Priority: Routine Referral Type: Refer to Department Only Requested Specialty: Physical Therapy Number of Visits Requested: 99 Total duration of time spent: 30 minutes. Provider Signature: Orlando Mercado MD Associated attestation - Valeriy Zarate MD - 03/06/2019 8:30 AM [facility] Supervising MD Documentation Date of Service: 03/06/2019 B# [id number] I saw and evaluated the patient. Discussed with resident and agree with the resident's findings andplan as documented in the resident's note. Additional Comments: Patient is doing well. Wound is healing well. Dressing is removed. Discharge instructions are given. Patient is going to the outpatient rehab in [facility]. Valeriy Zarate MD Supervising Physiciandocumented in this encounter Discharge Instructions Chay Montano RN - 03/05/2019Provider's Instructions Reason for Admission or Diagnosis: myxoma of right thigh Activity/Restrictions: Activity as tolerated, but no heavy lifting > 10 lbs (nothing heavier than a gallon of milk) or strenuous exercise for 4 weeks or until cleared by a physician at your post-operative appointment. Nodriving while on narcotic pain medications. You can drive the week after next week if you are off narcotics and you feel up to it. Exercise and walk daily. Take tylenol as needed for pain (do not exceed 4000 mg acetaminophen in total per day). Take oxycodone 1-2 tablet every 4-6 hours as needed for severe pain. Skin/Wound Care: Keep incision clean and dry. Observe for redness, swelling, or drainage. It is okay to begin taking normal showers starting the day after discharge; let soap and water rinse over wounds and dry carefully. No scrubbing at the wounds. No soaking baths or swimming for 2 weeksafter discharge. Use ice packs and heat packs as needed for additional pain relief. Sutures are absorbable and do not need to be removed. Discharge Diet: Normal diet that you were on prior to hospitalization. Please take stool softener while you are on narcotic pain medication since it can cause constipation. Special Instructions: Follow up with Bianka Macias in [facility] in 10-14 days for post op visit. Please call clinic on Friday to schedule for the appointment. Please start outpatient physical therapy early next week. Please start taking oxycodone as needed for pain. Take tylenol over the counter as needed for pain (do not exceed 4000 mg acetaminophen in total per day ). Please monitor for any fevers> 100.5; redness, swelling or drainage from the wounds; inability to tolerate fluids by mouth and call clinic immediately if these symptoms occur. Please call the clinic if you have any questions or concerns before your appointment. Discharge Provider: Isha Jessica MD Attending: Angela Mireles MD Time: 16:35 Nurse's Instructions Problems to report to your Physician: Excessive pain or discomfort Fever > 100.5 degrees Difficulty breathing Increase or smell in wound drainage Skin/Wound Care: Skin intact on discharge: May shower Medical Equipment/Supplies to help you at home: cane Follow-Up Care: Call to schedule your appointment with Bianka Macias in 2 weeks, Phone Reminded patient that they can VIEW, DOWNLOAD and TRANSMIT their hospital information in [facility]: yes http://www.[employer].net/sites/default/files/[email or web address]%[email or web address]%20will% 20see%[email or web address]_[email or web address].pdf Smoking: If you or your caregiver smoke, we recommend that you quit. For smoking cessation help, please callthe National Quit Line at . QUESTIONS OR CONCERNS AFTER DISCHARGE Dietitian Home Care Needs *Please Return Patient Satisfaction Survey* documented in this encounter Progress Notes Orlando Mercado MD - 03/05/2019 11:50 AM EDT [facility] [place]. [id number] General Surgery Progress Note Date of Service: 03/05/2019 Date of Admission: 03/04/19 Patient: Ellie Dowell #: [id number] Attending: ANGELA MIRELES MD ,MD Interval Present History: She is doing well this morning. She ambulated, voided independently and tolerated diet. SHABANA output is 50 cc serosanguinous. PT-OT will evaluate level of function and dc will beplanned. Past Medical History: Diagnosis Date Arthritis hands, knees, ankles Asthma 2018 dx on PFT,normal FVC Basal cell carcinoma, face High cholesterol high triglyerides, started a wellness program. 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: [employer] Social Needs Financial resource strain: Not on file Food insecurity: Worry: Not on file Inability: Not on file Transportation needs: Medical: Not on file Non-medical: Not on file Tobacco Use Smoking status: Never Smoker Smokeless tobacco: Never Used Substance and Sexual Activity Alcohol use: Yes Alcohol/week: 1.0 standard drinks Types: 1 Glasses of wine per week Frequency: Monthly or less Comment: 4/month Drug use: Not Currently Sexual activity: Not Currently Partners: Male, Female Lifestyle Physical activity: Days per week: Not on file Minutes per session: Not on file Stress: Not on file Relationships Social connections: Talks on phone: Not on file Gets together: Not on file Attends yazidi service: Not on file Active member of club or organization: Not on file Attends meetings of clubs or organizations: Not on file Relationship status: Not on file Intimate partner violence: Fear of current or ex partner: Not on file Emotionally abused: Not on file Physically abused: Not on file Forced sexual activity: Not on file Other Topics Concern Not on file Social History Narrative Lives alone 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 [facility] 08/06/18 Allergies Allergen Reactions Amoxicillin Unknown Reaction Niacin CASKET COVERER Reaction Head feels prickly and stings Vitals: Blood pressure 119/65, pulse 71, temperature 96.9 F (36.1 C), temperature source Temporal, resp. rate 16, height 5' 3.5" (1.613 m), weight 170 lb 11.2 oz (77.4 kg), SpO2 96 %, not currently . SaO2% on Room Air I/O: Date 03/04/19 0700 - 03/05/19 0659 03/05/19 0700 - 03/06/19 0659 Shift 1589-5377 7159-8270 7940-6278 24 Hour Total 4200-4873 6929-5289 0622-5172 24 Hour Total INTAKE P.O. 480 450 930 I.V.(mL/kg/hr) 1800(2.91) 1800(0.97) Shift Total(mL/kg) 2280(29.45) 450(5.81) 2730(35.26) OUTPUT Urine(mL/kg/hr) 600(0.97) 600(0.32) Drains 20 30 50 Blood 25 25 Shift Total(mL/kg) 625(8.07) 20(0.26) 30(0.39) 675(8.72) Weight (kg) 77.43 77.43 77.43 77.43 77.43 77.43 77.43 77.43 Medications: Current Facility-Administered Medications Medication acetaminophen (TYLENOL) tablet 1,000 mg albuterol HFA (PROVENTIL,VENTOLIN) inhalation (RT ADMIN) 2 Puff atorvastatin (LIPITOR) tablet 10 mg docusate sodium (COLACE) capsule 100 mg heparin injection 5000 UNIT/ML loratadine (CLARITIN,ALAVERT) tablet 10 mg methocarbamol (ROBAXIN) tablet (1/2x500 mg) 250 mg morphine (PF) syringe 2 mg OXYcodone (OXY-IR,OXY-FAST) immediate release tablet 10 mg OXYcodone (OXY-IR,OXY-FAST) immediate release tablet 5 mg General: No acute distress HEENT: no trauma Heart: no JVD Lungs: unlabored respirations Abd: soft/non-tender/non-distended Ext: No cyanosis, clubbing or edema, incision c/d/i Labs: WBC Count Date Value Ref Range Status 03/05/2019 10.96 (H) 3.98 - 10.04 K/uL Final Comment: Methodology was changed 06/25/2018. Please note updated reference range and units. Hemoglobin Date Value Ref Range Status 03/05/2019 11.7 11.2 - 15.7 g/dL Final Hematocrit Date Value Ref Range Status 03/05/2019 34.2 34.1 - 44.9 % Final Platelet Count Date Value Ref Range Status 03/05/2019 258 182 - 369 K/uL Final Sodium Date Value Ref Range Status 03/05/2019 138 134 - 145 mmol/L Final Potassium Date Value Ref Range Status 03/05/2019 3.8 3.5 - 5.1 mmol/L Final Chloride Date Value Ref Range Status 03/05/2019 109 (H) 98 - 107 mmol/L Final CO2 Date Value Ref Range Status 03/05/2019 22 22 - 30 mmol/L Final Glucose Date Value Ref Range Status 03/05/2019 118 (H) 70 - 99 mg/dl Final BUN Date Value Ref Range Status 03/05/2019 14 7 - 17 mg/dl Final Creatinine Date Value Ref Range Status 03/05/2019 0.7 0.7 - 1.2 mg/dl Final Calcium Date Value Ref Range Status 03/05/2019 8.6 8.3 - 10.1 mg/dl Final Calcium Date Value Ref Range Status 03/05/2019 8.6 8.3 - 10.1 mg/dl Final Magnesium Date Value Ref Range Status 03/05/2019 2.1 1.6 - 2.3 MG/DL Final No results found for: INR BS: Studies: none Core Measures: DVT Prophylaxis: heparin GI Prophylaxis: not indicated Nutrition: regular Max Remains in place for the following reason(s): No max present Assessment:Ellie Guzmán is a 79-y.o. yo female with slowly enlarging right thigh mass for at least5 years or more which causing no pain or discomfort. Most recent imaging study showed approximately5 cm intramuscular, vastus lateralis area myxomatous lesion. Biopsy and Pathology revealed Myxoid spindle cell neoplasm. Mild cytologic atypia. Pathology results were reviewed. Since this is consistent with a low-grade myxoid lesion. It could be A low-grade sarcoma or a benign myxoid lesion. Excision is done for definitive diagnosis / treatment. Plan: POD1 Resection of right lateral thigh intramuscular mass likely myxoid spindle cell neoplasm. - Pain control - Keep SHABANA at suction - PT/OT evaluated, recommended STR Asthma - Continue inhaler - Continue loratadine Dispo:Pt is not willing for STR, Plan dc home, SW following Author: Orlando Mercado MD Associated attestation - Angela Mireles MD - 03/05/2019 4:42 PM [facility] Supervising MD Documentation Date of Service: 03/05/2019 B# [id number] I saw and evaluated the patient. Discussed with resident and agree with the resident's findings andplan as documented in the resident's note. Additional Comments: Postoperative day #1. Overall doing well. Working with physical therapy. Mayneed additional physical therapy due to the issues with her home and stairs and steps. Paul-Soares drain removed. Final pathology: Benign intramuscular myxoma. Reviewed with her. Anticipate discharge 24 to 48 hours. Follow-up with Bianka Macias, 10 to 14 days for initial postop visit. Angela Mireles MD Supervising Physiciandocumented in this encounter Plan of Treatment Date Type Specialty Care Team Description 03/18/2019 Office Visit General Surgery Bianka Macias PA-C [address] [place] [address] [phone] Name Type Priority Associated Diagnoses Order Schedule REFER TO PHYSICAL Referral Routine Sarcoma (HCC) 99 Occurrences starting THERAPY / REHAB 03/05/2019 until 03/05/2020 REFER TO PHYSICAL Referral Routine Sarcoma (HCC) 99 Occurrences starting THERAPY / REHAB 03/05/2019 until 03/05/2020 Health Maintenance Due Date Last Done Comments ZOSTER IMMUNIZATION SERIES 03/05/2007 01/08/2007 (2 of 3) INFLUENZA VACCINE (#1) 2019 04/05/2018 DEPRESSION SCREENING 08/06/2019 08/06/2018 FALL RISK ASSESSMENT 08/06/2019 08/06/2018, 08/06/2018 LIPID DISORDER SCREENING 12/03/2023 12/02/2018, 10/26/2018, 08/06/2018, Additional history exists OSTEOPOROSIS SCREENING 06/02/2028 06/02/2018, 06/02/2018 PNEUMOCOCCAL 65+YRS Completed 03/01/2015, 07/29/2007 HPV IMMUNIZATION SERIES Aged Out No longer eligible based on patient's age to complete this topic MENINGOCOCCAL VACCINE IMM Aged Out No longer eligible based on patient's age to complete this topic documented as of this encounter Procedures Procedure Name Priority Date/Time Associated Comments Diagnosis MAGNESIUM LEVEL Routine 03/05/2019 6:58 Results for this AM EDT procedure are in the results section. BASIC METABOLIC Routine 03/05/2019 6:58 Results for this PANEL AM EDT procedure are in the results section. CBC NO DIFFERENTIAL Routine 03/05/2019 6:58 Results for this AM EDT procedure are in the results section. TISSUE EXAM Routine 03/04/2019 9:37 Sarcoma (HCC) Results for this AM EDT procedure are in the results section. EXCISION LIPOMA / Planned Trip to 03/04/2019 8:37 Sarcoma (HCC) SKIN LESION OR AM EDT documented in this encounter Results MAGNESIUM LEVEL (03/05/2019 6:58 AM EDT) Magnesium 2.1 1.6 - 2.3 MG/DL [facility] [facility] Specimen Blood Performing Organization Address City/State/Zipcode Phone Number [facility] [address] [address] CBC NO DIFFERENTIAL (03/05/2019 6:58 AM EDT) WBC Count 10.96 (H)Comment: 3.98 - 10.04 [place] Methodology was K/uL [facility] changed 06/25/2018. Please note updated reference range and units. RBC Count 3.64 (L) 3.93 - 5.22 [facility] M/UL [facility] Hemoglobin 11.7 11.2 - 15.7 [facility] g/dL [facility] Hematocrit 34.2 34.1 - 44.9 % [facility] MCV 94.0 79.4 - 94.8 [facility] FL GROUP [facility]ORY MCH 32.1 25.6 - 32.2 [facility] PG [facility] MCHC 34.2 32.2 - 35.5 [facility] g/dL [facility] Platelet Count 258 182 - 369 [facility] K/uL [facility] MPV 8.6 (L) 9.4 - 12.3 [place] [facility] RDW 12.3 11.7 - 14.4 % [facility] Specimen Blood Performing Organization Address City/State/Zipcode Phone Number [facility] [address] [place] [address] [phone] BASIC METABOLIC PANEL (03/05/2019 6:58 AM EDT) Glucose 118 (H) 70 - 99 mg/dl [facility] BUN 14 7 - 17 mg/dl [facility] Creatinine 0.7 0.7 - 1.2 mg/dl [facility] Sodium 138 134 - 145 mmol/L [facility] Potassium 3.8 3.5 - 5.1 mmol/L [facility] Chloride 109 (H) 98 - 107 mmol/L [facility] CO2 22 22 - 30 mmol/L [facility] Calcium 8.6 8.3 - 10.1 mg/dl [facility] eGFR >60 See Interpretation [facility] Comment: Below ml/min/1.73ml GROUP Sq LAB[facility]ATORY Estimated GFR Interpretation: Above 60ml/min/1.73m2 = Normal Renal Function 30-59 ml/min/1.73m2 = Stage 3 Chronic Kidney Disease 15-29 ml/min/1.73m2 = Stage 4 Chronic Kidney Disease Less than 15 ml/min/1.73m2 = Stage 5 Chronic Kidney Disease The GFR value is calculated using the Modification of Diet in Renal Disease ( MDRD) Study Equation which can be found at: https://www.kidney.org/content/stkh-gvkzc-warmcvsu BUN/Creatinine 20 6 - 22 [facility] Anion Gap 7 3 - 11 mmol/L [facility] Specimen Blood Performing Organization Address City/State/Zipcode Phone Number [facility] [address] [place] [address] TISSUE EXAM (03/04/2019 9:37 AM EDT) Case Report Surgical Pathology Case: [id number] [facility] Authorizing Provider: Angela Mireles MD Collected: 03/04/2019 09:37 AM Ordering Location: [facility] Preprocedure Received: 03/04/2019 11:32 AM Pathologist: Darren Villar MD Specimen: RIGHT thigh mass, suture at 12 o'clock superior Pre-Op Diagnosis 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 Soft tissue, [facility] Electronically right thigh, [facility] signed by excision: Darren Villar Intramuscular myxomaOmer MD on 03/05/2019 completely removed. at 11:18 AM Microscopic Sections show a [facility] Description well-demarcated [facility] myxoid neoplasm with abundant myxoid matrix containing small myofibroblastic cells. No cytologic atypia is identified. Blood vessels are inconspicuous. Gross Description 1. The specimen is received fresh labeled, with the patient' s name, MRN, and RIGHT thigh mass, suture at 12 o'clock superior. It consists of an oriented (suture at 12:00)) soft tissue fragment that jessika [facility] sures 6.5 cm from 12:00 proximal superior to 6:00 distal inferior, 4.5 cm from 3:00 medial to 9:00 lateral, excessive depth of 3.5 cm. The specimen is inked as follows: Superior = blue; medial = red; i [facility] nferior = green; lateral = orange; anterior = yellow; posterior = black. The specimen is serially sectioned progressing from superior to inferior to reveal a pink-reddy and well-circumscribed fleshy lesi on measuring approximately 5.5 x 3.6 x 2.6 cm that is located 0.21cm from the nearest lateral margin and approximately 0.2 cm from the anterior margin. Structural Steel Engineer sections are submitted as follows: 1A = superior margin, en face 1B-1C = sections of the lesion with the nearest lateral and anterior margins 1D = sections showing the lateral anterior medial and posterior margins 1E-1G = random sections of the lesion 1H = inferior margin, en face. 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, site unspecified documented in this encounter Administered Medications Medication Order MAR Action Action Date Dose Rate Site acetaminophen (TYLENOL) tablet Given 03/06/2019 1:13 PM EDT 1,000 mg 1,000 mg 1,000 mg, Oral, Q8 HRS, First dose on Fri03/04/19 at 1130, Until Discontinued Given 03/06/2019 5:37 AM EDT 1,000 mg Given 03/05/2019 9:09 PM EDT 1,000 mg atorvastatin (LIPITOR) tablet 10 mg Given 03/05/2019 9:09 PM EDT 10 mg 10 mg, Oral, QHS, First dose on Carolyn 03/04/19 at 2100, Until Discontinued Given 03/04/2019 8:01 PM EDT 10 mg docusate sodium (COLACE) capsule 100 mg Given 03/06/2019 8:11 AM EDT 100 mg 100 mg, Oral, BID, First dose on Carolyn 03/04/19 at 2100, Until Discontinued Given 03/05/2019 9:09 PM EDT 100 mg Given 03/05/2019 9:16 AM EDT 100 mg FentaNYL (PF) (SUBLIMAZE) injection (PF) 50 Given 03/04/2019 12:14 PM EDT 50 mcg mcg 50 mcg, Intravenous Push, PRU Q5MIN PRN, Starting Carolyn 03/04/19 at 1105, Until Carolyn 03/04/19 at 1346, Moderate Pain (pain scale 4-6) - IV - 1st line - if immediate effect required or patient cannot tolerate PO, Severe Pain (pain scale 7-10) - IV - 1st line - if immediate effect required or patient cannot tolerate PO, 4 Recovery Given 03/04/2019 11:07 AM EDT 50 mcg Acudose Override/See Single Admin 03/04/2019 10:45 AM EDT 50 mcg FENTANYL CITRATE (PF) 100 MCG/2ML IJ SOLN 1 dose, Starting Carolyn 03/04/19 at 1039, Until Carolyn 03/04/19 at 1045, ZAHEER LOMBARDI: kiya override, heparin injection 5000 Given 03/06/2019 5:37 AM 5,000 Units Abdominal Tissue UNIT/ML EDT 5,000 Units, Subcutaneous, Q8H (Heparin), 45 doses, First dose on Fri03/05/19 at 0600, Last dose on Fri03/19/19 at 2200 Given 03/05/2019 9:09 PM EDT 5,000 Units Abdominal Tissue Given 03/05/2019 1:09 PM EDT 5,000 Units Abdominal Tissue methocarbamol (ROBAXIN) tablet (1/2x500 mg) Given 03/06/2019 1:13 PM EDT 250 mg 250 mg 250 mg, Oral, QID, First dose on Carolyn 03/04/19 at 1300, Until Discontinued Given 03/06/2019 8:11 AM EDT 250 mg Given 03/05/2019 9:09 PM EDT 250 mg morphine (PF) syringe 2 mg Given 03/05/2019 12:28 AM EDT 2 mg 2 mg, Intravenous Push, Q2 HRS PRN, Starting Carolyn 03/04/19 at 1021, Until 03/06/19 at 1609, Severe Pain (pain scale 7-10) - IV - 1st line - if immediate effect required or patient cannot tolerate PO Given 03/04/2019 3:25 PM EDT 2 mg OXYcodone (OXY-IR,OXY-FAST) immediate release Given 03/04/2019 6:41 PM EDT 10 mg tablet 10 mg 10 mg, Oral, Q4 HRS PRN, Starting Carolyn 03/04/19 at 1529, Until 03/06/19 at 1609, Severe Pain (pain scale 7-10) - PO - 1st line - if immediate effect not required and patient can tolerate PO OXYcodone (OXY-IR,OXY-FAST) immediate release Given 03/06/2019 5:37 AM EDT 5 mg tablet 5 mg 5 mg, Oral, Q4 HRS PRN, Starting Carolyn 03/04/19 at 1030, Until 03/06/19 at 1609, Moderate Pain (pain scale 4-6) - PO - 1st line - if immediate effect not required and patient can tolerate PO Given 03/05/2019 6:00 AM EDT 5 mg Given 03/04/2019 11:22 PM EDT 5 mg potassium chloride (K-DUR) controlled Given 03/05/2019 3:02 PM EDT 20 mEq release tablet 20 mEq 20 mEq, Oral, X1, 1 dose, First dose on 03/05/19 at 1430 documented in this encounter Insurance Payer Benefit Plan / Subscriber ID Effective Dates Phone Address Type Group [employer] COMM[employer]CIAL AETNA xxxxxxxxxx 2006-Present [employer] documented as of this encounter
--- OUTSIDE RECORDS SUMMARY | 2019-03-20 18:58 | XMS REPORT | Summary of Care ---
:1940 Author Organization [facility] Address [address] [place] [address] Care Team Providers Name Role Phone Kusum Castorena MD Primary Care Provider Reason for Referral Diagnostic Testing (Routine) Status Reason Specialty Diagnoses / Referred By Referred To Procedures Contact Contact Pending Review Diagnoses Sarcoma (HCC) Nicole Macias PRE-OP 12-LEAD EKG (PAS) [place] [address] [place] [address] MRI/CAT/PET Scan (Routine) Status Reason Specialty Diagnoses / Referred By Referred To Procedures Contact Contact Pending Review Diagnoses Sarcoma (HCC) Pardeep Mireles Procedures CT CHEST WITHOUT IV CONTRAST [address] [place] [address] Reason for Visit Reason Comments Follow Up right thigh mass Encounter Details Date Type Department Care Team Description 02/09/2019 Office Visit Aj General Surgery Pardeep Mireles MD Sarcoma (HCC) (Primary [address] [place] Dx) [place] [phone] [place] [address] Allergies Active Allergy Reactions Severity Noted Date Comments Amoxicillin Unknown Reaction 08/06/2018 Niacin EXCEPTIONAL NEEDS TEACHER Reaction 08/06/2018 Head feels prickly and stings documented as of this encounter (statuses as of 02/13/2019) Medications Medication Sig Dispensed Refills Start Date End Date Status Lovastatin 20 MG Oral Tab Take 20 mg by 0 Active mouth DAILY. nabumetone (RELAFEN) 750 Take 750 mg by 0 Active MG Oral Tab mouth TWICE DAILY. Ergocalciferol (VITAMIN Take by mouth. 0 Active D2) 400 units Oral Tab Calcium 500-125 MG-UNIT Take by mouth. 0 Active Oral Tab [place]-3 1000 MG Oral Cap Take by mouth. 0 Active Nutritional Supplements Take by mouth. 0 Active (GRAPESEED EXTRACT) 500-50 MG Oral Cap Misc Natural Products Take by mouth 0 Active (XFNRXW-HUDGXTTPH-NYX TWICE DAILY. COMPLEX PO) Zinc 40 MG Oral Tab Take by mouth. 0 Active Multiple Take by mouth. 0 Active Vitamins-Minerals (HAIR SKIN AND NAILS FORMULA PO) albuterol HFA (VENTOLIN Take 2 Puffs by 0 Active HFA) 108 (90 Base) inhalation. MCG/ACT Inhalation Aero Soln Cyanocobalamin (VITAMIN Take by mouth 0 Active B-12) 1000 MCG Oral Tab DAILY. loratadine Take 10 mg by 0 Active (CLARITIN,ALAVERT) 10 MG mouth DAILY. Oral Tab documented as of this encounter (statuses as of 02/13/2019) Active Problems Problem Noted Date Sarcoma 02/09/2019 Overview: Added automatically from request for surgery [id number] documented as of this encounter (statuses as of 02/13/2019) Immunizations Name Administration Dates Next Due Influenza [...] Sign Reading Time Taken Comments Blood Pressure 128/72 02/09/2019 3:56 PM EDT Pulse 92 02/09/2019 3:56 PM EDT Temperature 36.8 02/09/2019 3:56 PM C (98.3 EDT F) Respiratory Rate 20 02/09/2019 3:56 PM EDT Oxygen Saturation 96% 02/09/2019 3:56 PM EDT Inhaled Oxygen Concentration - - Weight 77.4 kg (170 lb 11.2 oz) 02/09/2019 3:56 PM EDT Height 161.3 cm (5' 3.5") 02/09/2019 3:56 PM EDT Body Mass Index 29.76 02/09/2019 3:56 PM EDT documented in this encounter Progress Notes Pardeep Mireles MD - 02/09/2019 3:45 PM EDT [facility] SURGICAL ONCOLOGY 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 Ellie Guzmán is a 78-y.o. female,. Seen today for biopsy review. She has a known slowly enlarging right thigh mass. Is been there forat least 5 years or more. No pain or discomfort. No functional impact on the right lower extremity, quadriceps or hamstrings. No neurologic changes. Does not particularly adversely impact activities of daily living. No systemic symptoms. No unexplained weight loss. No shortness of breath. No new bone pains. Most recent imaging study shows approximately 5 cm intramuscular, vastus lateralis area myxomatous lesion. Pathology: Myxoid spindle cell neoplasm. Mild cytologic atypia. Pathology results were reviewed. Again this is consistent with a low-grade myxoid lesion. It may be A low-grade sarcoma or may be a benign myxoid lesion. Past Medical History: Diagnosis Date Arthritis hands, [...] NEC LAP, SURG. MYOMEC.; 5/MORE INTR several ND TOTAL ABDOM HYSTERECTOMY cervix still in, BSO Current Outpatient Medications Medication albuterol HFA (VENTOLIN HFA) 108 (90 Base) MCG/ACT Inhalation Aero Soln Calcium 500-125 MG-UNIT Oral Tab Cyanocobalamin (VITAMIN B-12) 1000 MCG Oral Tab Ergocalciferol (VITAMIN D2) 400 units Oral Tab loratadine (CLARITIN,ALAVERT) 10 MG Oral Tab Lovastatin 20 MG Oral Tab Misc Natural Products (KBHBPE-GAZETIGQB-AYW COMPLEX PO) Multiple Vitamins-Minerals (HAIR SKIN AND NAILS FORMULA PO) nabumetone (RELAFEN) 750 MG Oral Tab Nutritional Supplements (GRAPESEED EXTRACT) 500-50 MG Oral Cap Richmond-3 1000 MG Oral Cap Zinc 40 MG Oral Tab Allergies Allergen Reactions Amoxicillin Unknown Reaction Niacin EXCEPTIONAL NEEDS TEACHER Reaction Head feels prickly and stings Ex:BP 128/72 (BP Location: Left arm, Patient Position: Sitting) | Pulse 92 | Temp 98.3 F (36.8C) (Tympanic) | Resp 20 | Ht 5' 3.5" (1.613 m) | Wt 170 lb 11.2 oz (77.4 kg) | SpO2 96% | BMI 29.76 kg/m Lungs clear. Heart regular. Palpable mass right mid lateral thigh. IMPRESSION/PLAN: 1. 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 Differential diagnosis was reviewed. Recommended treatment for surgical excision in accord with the possibility of sarcoma was reviewed. That is to say resection of the mass with a margin of normal tissue circumferentially. Possibility of postoperative radiation was discussed and that would dependon the final grade and pathology of the lesion if it is malignant. We will obtain a chest x-ray as part of preadmission testing. The likelihood of pulmonary metastasis with single low, with such a long-standing lesion and low-grade atypia. Impact of the surgery, short-term on activities of daily living quality of life and activities was also discussed and reviewed. I reviewed the indications for surgery long potential for risk side effects complications which include but are not limited to: Deep venous thrombosis, pulmonary embolus, wound separation, wound infection, postoperative seroma, less likely bleeding or blood transfusions. DATE OF SURGERY: 03/04/2019. SURGICAL PLANS: RESECTION RIGHT THIGH MASS. ANESTHESIA: GENERAL. ANTICIPATED LENGTH OF HOSPITALIZATION 1 TO 3 DAYS. Pardeep Mireles MD [facility] Chief Surgical Oncology Dir. Gen. Surgery [facility] Aj HALL [phone] During this 25 to 30-minute established patient visit I spent greater than 90% time [id number] with the patient reviewing the biopsy results, again discussing the imaging studies the nature of the lesion and the above-noted recommendations and counseling about surgery. documented in this encounter Plan of Treatment Date Type Specialty Care Team Description 02/25/2019 Ancillary Procedure Radiology 02/25/2019 Nurse/Clinical Internal Medicine Support 03/04/2019 Hospital Encounter Anesthesiology Pardeep Mireles Short Procedure MD [address] [place] [address] 03/04/2019 Surgery Pardeep Mireles, resection Right MD Thigh MasS [address] [place] [address] Name Type Priority Associated Diagnoses Order Schedule CT CHEST WITHOUT IV Imaging Routine Sarcoma (HCC) Expected: CONTRAST 02/09/2019, Expires: 02/09/2020 CASE REQUEST OPERATING Procedures Routine Sarcoma (HCC) Ordered: 02/09/2019 ROOM PRE-OP 12-LEAD EKG (PAS) EKG Routine Sarcoma (HCC) Expected: 02/09/2019, Expires: 03/15/2020 COMPREHENSIVE METABOLIC Lab Routine Sarcoma (HCC) Expected: PANEL 02/09/2019 (Approximate), Expires: 08/08/2019 Health Maintenance Due Date Last Done Comments ZOSTER IMMUNIZATION SERIES 03/05/2007 01/08/2007 (2 of 3) INFLUENZA VACCINE (#1) 2019 04/05/2018, 04/02/2018, 04/22/2017 DEPRESSION SCREENING 08/06/2019 08/06/2018 FALL RISK ASSESSMENT [...] filedocumented in this encounter Visit Diagnoses Diagnosis Sarcoma (HCC) - Primary 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
[2019-03-20 19:07] VITALS: BP 136/81
--- NOTE | 2019-03-20 19:18 | UC ---
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, left loya, both knees---has taken Tylenol and oxycodone for pain---skin tear on left lower leg-- - History of Current Complaint Chief Complaint: UCTrauma Stated Complaint: LEGS INJURY Time Seen by Provider: 03/20/19 18:57 Hx Obtained From: Patient ?: No Onset/Duration: Sudden Onset, Lasting Hours - 1 Pain Intensity: 4 Pain Scale Used: 0-10 Numeric Aggravating Factor(s): Standing, Ambulation Alleviating Factor(s): Ice Able to Bear Weight: Yes - Allergies/Home Medications Allergies/Adverse Reactions: Allergies Allergy/AdvReac Type Severity Reaction Status Date / Time amoxicillin Allergy Unknown Verified 03/20/19 19:07 Reaction Details niacin Allergy Unknown Verified 03/20/19 19:07 Reaction Details Home Medications: Home Medications Acetaminophen TAB* [Tylenol TAB*] 975 mg PO Q6H PRN 03/20/19 [History Confirmed 03/20/19] Cyclobenzaprine TAB* [Flexeril 10 MG TAB*] 10 mg PO BID 03/20/19 [History Confirmed 03/20/19] oxyCODONE/Acetamin 5/325 MG* [Percocet 5/325 TAB*] 1 tab PO Q6H PRN 03/20/19 [ History Confirmed 03/20/19] PMH/Surg Hx/FS Hx/Imm Hx Previously Healthy: No Endocrine History: Dyslipidemia - Surgical History Surgical History: Yes Surgery Procedure, Year, and Place: 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 Right leg 03/04/19 - Family History Known Family History: Positive: Hypertension - Social History Occupation: Retired Lives: With Family Alcohol Use: Weekly Alcohol Amount: 1-2 PER WEEK Substance Use Type: None Smoking Status (MU): Never Smoked Tobacco Review of Systems All Other Systems Reviewed And Are Negative: Yes Constitutional: Positive: Negative Skin: Positive: Bruising - left loya, Other - abrasion and skin tear left lower leg Eyes: Positive: Negative ENT: Positive: Negative Respiratory: Positive: Negative Cardiovascular: Positive: Negative Gastrointestinal: Positive: Negative Genitourinary: Positive: Negative Motor: Positive: Negative Neurovascular: Positive: Negative Musculoskeletal: Positive: Arthralgia - both knee right ankle left loya, Edema - right ankle Neurological: Positive: Negative Psychological: Positive: Negative Is Patient Immunocompromised?: No Physical Exam Triage Information Reviewed: Yes Appearance: Well-Appearing, Well-Nourished, Pain Distress - mild Vital Signs: Initial Vital Signs Temp 97.2 F 03/20/19 19:00 Pulse 74 03/20/19 19:00 Resp 16 03/20/19 19:00 BP 136/81 03/20/19 19:00 Pulse Ox 100 03/20/19 19:00 Vital Signs Reviewed: Yes Eye Exam: Normal Eyes: Positive: Conjunctiva Clear ENT Exam: Normal ENT: Positive: Normal ENT inspection, Hearing grossly normal. Negative: Nasal congestion, Trismus, Muffled voice, Hoarse voice Neck exam: Normal Neck: Positive: Supple, Nontender Respiratory Exam: Normal Respiratory: Positive: Chest non-tender, No respiratory distress, No accessory muscle use Cardiovascular Exam: Normal Cardiovascular: Positive: RRR, Pulses Normal, Brisk Capillary Refill Musculoskeletal Exam: Other Musculoskeletal: Positive: ROM Limited @ - right ankle, Edema @ - right ankle, left loya Neurological Exam: Normal Psychological Exam: Normal Skin: Positive: Other - abrasion and skin tear left loya Procedures - Laceration/Wound Repair 1 Location: lower extremity - left Description: Irregular Length, Depth and Shape: 12 cm total with 2 cm diameter skin tear distally, width 5 mm depth superficial Betadine Prep?: No Irrigated w/ Saline (ccs): 250 Laceration/Wound Explored: clean Number of Sutures: 0 - no suture required Sterile Dressing Applied?: Yes Diagnostics - Radiology No standard instances Radiology Interpretation Completed By: ED Physician - no evidence of acute fractures Lower Extremity Course/Dx - Course Course Of Treatment: noel wrap, knees and right ankle---ambulatory with comfortable and steady gait, Vaseline gauze and wrap to left lower leg, tetanus up to date - Differential Dx/Diagnosis Provider Diagnosis: Abrasion of anterior left lower leg, Bilateral knee pain, Right ankle injury Discharge ED - Sign-Out/Discharge Documenting (check all that apply): Patient Departure All imaging exams completed and their final reports reviewed: No - Discharge Plan Condition: Stable Disposition: HOME Patient Education Materials: Contusion in Adults (ED), Abrasion (ED), Skin Tear (ED) Referrals: Kusum Castorena MD [Primary Care Provider] - 5 Days - Billing Disposition and Condition Condition: STABLE Disposition: Home
--- NOTE | 2019-03-21 21:41 | UC ---
- Progress Note Progress Note: RADIOLOGY REPORTS REVIEWED. LEFT TIB/FIB X-RAY AND BILATERAL KNEE X-RAYS SHOWED DEGENERATIVE CHANGES BUT NO ACUTE OSSEOUS INJURY. LEFT ANKLE X-RAY WITH A BONE FRAGMENT OFF THE DISTAL FIBULA SUGGESTIVE OF A REMOTE INJURY. NO CHANGE IN MANAGEMENT. Course/Dx - Diagnoses Provider Diagnoses: Abrasion of anterior left lower leg, Bilateral knee pain, Right ankle injury Discharge ED - Sign-Out/Discharge Documenting (check all that apply): Post-Discharge Follow Up All imaging exams completed and their final reports reviewed: Yes - Discharge Plan Condition: Stable Disposition: HOME Patient Education Materials: Contusion in Adults (ED), Abrasion (ED), Skin Tear (ED) Referrals: Kusum Castorena MD [Primary Care Provider] - 5 Days - Billing Disposition and Condition Condition: STABLE Disposition: Home
== END 2019-03-20 20:30 | disposition home or self-care (01) ==
LOC: UCEAST 18:52
DX: S80.812A Abrasion, left lower leg, initial encounter (principal); M25.562 Pain in left knee; M25.561 Pain in right knee; S99.911A Unspecified injury of right ankle, initial encounter; W10.9XXA Fall (on) (from) unspecified stairs and steps, initial encounter; Y92.9 Unspecified place or not applicable; Z88.0 Allergy status to penicillin
CPT/HCPCS: 99212; G0463